=== PATIENT | female | born 2000 | race African-American/Black ===

== ENCOUNTER 2021-06-28 17:33 | Emergency (ER) | payer OTHER ==
[~2021-06-28] VITALS: Ht 175.3 cm; Wt 50.8 kg
[2021-06-28 18:35] LABS: BILIRUBIN,URINE NEGATIVE (NEGATIVE); COLOR,URINE YELLOW (YELLOW); LEUKOCYTE ESTERASE ,URINE NEGATIVE (NEGATIVE); NITRITE, URINE NEGATIVE (NEGATIVE); PH,URINE 6.5 (5.0-8.0); PROTEIN,URINE TRACE mg/dl (NEGATIVE); UGLUCOSE NEGATIVE (NEGATIVE)
[2021-06-28 18:43] LABS: BACTERIA,URINE None seen /HPF (None Seen); MUCUS,URINE Few /LPF (None Seen); RBC,URINE 0-2 /HPF (0-2); WBC,URINE 0-2 /HPF (0-3)
--- NOTE | 2021-06-28 19:01 | NUR ---
PATIENT C/O VAGINAL DISCHARGE "BLACK" THAT STARTED LAST NIGHT. PATIENT IS A/O X 4, RR EVEN AND UNLABORED, NO SOB NOTED. PATIENT CONNECTED TO STAFF VETERINARIAN AND POX.
[2021-06-28] MEDS ORDERED: METR500T PO (20:40)
[2021-06-28] MEDS ORDERED: AMOX-430 PO (20:40)
--- NOTE | 2021-06-28 20:43 | NUR ---
Patient discharged to home in stable condition. Written and verbal after care instructions given. Patient verbalizes understanding of instruction. Pt ambulatory with a steady gait
[2021-06-28 21:21] VITALS: BP 115/70
== END 2021-06-28 20:43 | disposition home or self-care (01) ==
LOC: ER 17:49
DX: T19.2XXA Foreign body in vulva and vagina, initial encounter (principal); X58.XXXA Exposure to other specified factors, initial encounter; Y93.89 Activity, other specified; Y92.89 Other specified places as the place of occurrence of the external cause; Y99.8 Other external cause status
CPT/HCPCS: 81001; 84703-TC